=== PATIENT | male | born 1980 | race Caucasian/White ===

== ENCOUNTER 2019-05-06 09:34 | Emergency (ER) | payer BC ==
--- NOTE | 2019-05-06 11:15 | EDM.PDOC ---
ED HPI GENERAL MEDICAL PROBLEM - General Chief Complaint: Cardiovascular Problem Stated Complaint: HIGH BP Time Seen by Provider: 05/06/19 11:16 Source of Information: Reports: Patient History Limitations: Reports: No Limitations - History of Present Illness INITIAL COMMENTS - FREE TEXT/NARRATIVE: Alert very anxious 38 year old male presents due to elevated blood pressure and vague neurologic vertiginous symptoms which seem to be episodic and brought on by eye movement while drinking over the last week. Patient describes ringing in his ear which alternates right and left long with pounding in bilateral ears. Patient took his blood pressure over night resulting in BP 180s/110s. Patient takes his blood pressure routinely which he has noted as just slightly above normal range. Patient is diabetic and has been since 20 years of age. Patient uses OTC Insulin N and R which his gives himself N bolus very am and pm along with R based on sliding scale and caloric intake. Patient checks his blood sugar 10-15 times per day and notes usually between 100 and 120s. Patient does not have a routine PCP and has not for quite some time. Patient became more concerned overnight with vertiginous symptoms with driving long with blood pressure readings. Patient has had episodes when he becomes sweating , rapid respiratory rate, heart palpitation and sweat which make his feel anxious and the anxiety builds to panic over the last week. Patient is more concerned with elevated blood pressure and vertiginous symptoms which prompted ER visit today. Type 1 diabetic since age 20. Self Insulin Treatment: Novolin N 50mg BID Novolin R based on carb counts 1unit per Gram iof Carb 15U per 15Gram Sliding scale: BS 100= No Insulin 200= 20 units 300= 30 units 400= 40 units - Related Data Allergies Allergy/AdvReac Type Severity Reaction Status Date / Time Sulfa (Sulfonamide Allergy Hives Verified 05/06/19 10:09 Antibiotics) Home Meds: Home Meds Insulin NPH Human Isophane [Novolin N] 50 unit SQ BID 05/06/19 [History] Insulin Regular, Human [NovoLIN R] ASDIRECTED 05/06/19 [History] Lisinopril 20 mg PO DAILY 90 Days #90 tablet 05/06/19 [Rx] Meclizine [Antivert] 25 mg PO Q6H PRN 5 Days #40 tab 05/06/19 [Rx] Past Medical History Cardiovascular History: Reports: High Cholesterol, Hypertension Respiratory History: Reports: Sleep Apnea Other Respiratory History: auto pap Musculoskeletal History: Reports: Fracture Other Musculoskeletal History: left tib bone cyst Psychiatric History: Reports: Anxiety Endocrine/Metabolic History: Reports: Diabetes, Type I Other Endocrine/Metabolic History: since age 20. Self Insulin Treatment: Novolin N 50mg BID. Novolin R based on carb counts 1unit per Gram iof Carb 15U per 15Gram. Sliding scale: BS 100= No Insulin. 200= 20 units. 300= 30 units. 400= 40 units Dermatologic History: Reports: Eczema - Past Surgical History HEENT Surgical History: Reports: Adenoidectomy, Myringotomy w Tube(s), Tonsillectomy Social & Family History - Tobacco Use Smoking Status *Q: Former Smoker Used Tobacco, but Quit: Yes Month/Year Tobacco Last Used: 2007 - Caffeine Use Caffeine Use: Reports: Soda Caffeine Use Comment: rarely - Recreational Drug Use Recreational Drug Use: No ED ROS GENERAL - Review of Systems Review Of Systems: ROS reveals no pertinent complaints other than HPI. ED EXAM, GENERAL - Physical Exam Exam: See Below Exam Limited By: No Limitations General Appearance: Alert, WD/WN, Anxious, Mild Distress Eye Exam: Bilateral Eye: EOMI, PERRL Ears: Normal External Exam, Normal Canal, Hearing Grossly Normal, Normal TMs Nose: Normal Inspection, Normal Mucosa, No Blood Throat/Mouth: Normal Inspection, Normal Lips, Normal Teeth, Normal Gums, Normal Oropharynx, Normal Voice, No Airway Compromise Head: Atraumatic, Normocephalic Neck: Normal Inspection, Supple, Non-Tender, Full Range of Motion Respiratory/Chest: No Respiratory Distress, Lungs Clear, Normal Breath Sounds, No Accessory Muscle Use, Chest Non-Tender, Other (increased respiratory rate) Cardiovascular: Normal Peripheral Pulses, Regular Rate, Rhythm GI/Abdominal: Normal Bowel Sounds, Soft, Non-Tender Back Exam: Normal Inspection, Full Range of Motion, NT Extremities: Normal Inspection, Normal Range of Motion, Non-Tender, Normal Capillary Refill, No Pedal Edema Neurological: Alert, Oriented, CN II-XII Intact, Normal Cognition, Normal Gait, Normal Reflexes, No Motor/Sensory Deficits Psychiatric: Normal Affect, Normal Mood, Anxious, Flat Affect Skin Exam: Warm, Dry, Intact, Normal Color, No Rash EKG INTERPRETATION EKG Date: 05/06/19 Time: 12:07 Rhythm: NSR Rate (Beats/Min): 77 [place]: Normal P-Wave: Present QRS: Normal ST-T: Other (non specific ST T wave changes in anterior LEADS) QT: Normal Comparison: NA - No Prior EKG Course - Vital Signs Last Recorded V/S: Last Vital Signs Temp 36.3 C 05/06/19 10:08 Pulse 80 05/06/19 12:31 Resp 18 05/06/19 12:31 BP 142/73 H 05/06/19 12:31 Pulse Ox 95 05/06/19 12:31 - Orders/Labs/Meds Orders: Active Orders 24 hr Category Date Time Status Cardiac Monitoring [RC] .As Directed Care 05/06/19 11:37 Active EKG Documentation Completion [RC] ASDIRECTED Care 05/06/19 11:38 Active EKG 12 Lead [EK] Urgent Ther 05/06/19 11:37 Ordered Labs: Laboratory Tests 05/06/19 05/06/19 05/06/19 Range/Units 11:57 11:57 11:57 WBC 11.4 H (4.5-11.0) K/uL RBC 5.55 (4.30-5.90) M/uL Hgb 16.0 H (12.0-15.0) g/dL Hct 48.5 (40.0-54.0) % MCV 87 (80-98) fL MCH 29 (27-31) pg MCHC 33 (32-36) % Plt Count 256 (150-400) K/uL Neut % (Auto) 81 H (36-66) % Lymph % (Auto) 12 L (24-44) % Rincon % (Auto) 6 (2-6) % Eos % (Auto) 0 L (2-4) % Baso % (Auto) 0 (0-1) % Sodium 139 L (140-148) mmol/L Potassium 4.3 (3.6-5.2) mmol/L Chloride 104 (100-108) mmol/L Carbon Dioxide 24 (21-32) mmol/L Anion Gap 15.3 H (5.0-14.0) mmol/L BUN 13 (7-18) mg/dL Creatinine 1.0 (0.8-1.3) mg/dL Est Cr Clr Drug Dosing 111.01 mL/min Estimated GFR (MDRD) > 60 (>60) Glucose 105 (74-106) mg/dL Hemoglobin A1c 5.9 (4.5-6.2) % Calcium 9.6 (8.5-10.1) mg/dL Magnesium 1.9 (1.8-2.4) mg/dL Total Bilirubin 0.2 (0.2-1.0) mg/dL Direct Bilirubin 0.11 (0.0-0.2) mg/dL Indirect Bilirubin 0.09 AST 17 (15-37) U/L ALT 31 (12-78) U/L Alkaline Phosphatase 106 (46-116) U/L Troponin I < 0.017 (0.000-0.056) ng/mL Total Protein 7.5 (6.4-8.2) g/dL Albumin 3.8 (3.4-5.0) g/dL Globulin 3.7 H (2.3-3.5) g/dL Albumin/Globulin Ratio 1.0 L (1.2-2.2) Urine Color (YELLOW) Urine Appearance (CLEAR) Urine pH (5.0-8.0) Ur Specific Spring (1.008-1.030) Urine Protein (NEGATIVE) mg/dL Urine Glucose (UA) (NEGATIVE) mg/dL Urine Ketones (NEGATIVE) mg/dL Urine Occult Blood (NEGATIVE) Urine Nitrite (NEGATIVE) Urine Bilirubin (NEGATIVE) Urine Urobilinogen (0.2-1.0) EU/dL Ur Leukocyte Esterase (NEGATIVE) Urine RBC (0-5) Urine WBC (0-5) Ur Epithelial Cells Amorphous Sediment Urine Bacteria Urine Mucus 05/06/19 Range/Units 13:29 WBC (4.5-11.0) K/uL RBC (4.30-5.90) M/uL Hgb (12.0-15.0) g/dL Hct (40.0-54.0) % MCV (80-98) fL MCH (27-31) pg MCHC (32-36) % Plt Count (150-400) K/uL Neut % (Auto) (36-66) % Lymph % (Auto) (24-44) % Rincon % (Auto) (2-6) % Eos % (Auto) (2-4) % Baso % (Auto) (0-1) % Sodium (140-148) mmol/L Potassium (3.6-5.2) mmol/L Chloride (100-108) mmol/L Carbon Dioxide (21-32) mmol/L Anion Gap (5.0-14.0) mmol/L BUN (7-18) mg/dL Creatinine (0.8-1.3) mg/dL Est Cr Clr Drug Dosing mL/min Estimated GFR (MDRD) (>60) Glucose (74-106) mg/dL Hemoglobin A1c (4.5-6.2) % Calcium (8.5-10.1) mg/dL Magnesium (1.8-2.4) mg/dL Total Bilirubin (0.2-1.0) mg/dL Direct Bilirubin (0.0-0.2) mg/dL Indirect Bilirubin AST (15-37) U/L ALT (12-78) U/L Alkaline Phosphatase (46-116) U/L Troponin I (0.000-0.056) ng/mL Total Protein (6.4-8.2) g/dL Albumin (3.4-5.0) g/dL Globulin (2.3-3.5) g/dL Albumin/Globulin Ratio (1.2-2.2) Urine Color Yellow (YELLOW) Urine Appearance Clear (CLEAR) Urine pH 5.5 (5.0-8.0) Ur Specific Spring 1.025 (1.008-1.030) Urine Protein Negative (NEGATIVE) mg/dL Urine Glucose (UA) Negative (NEGATIVE) mg/dL Urine Ketones Negative (NEGATIVE) mg/dL Urine Occult Blood Negative (NEGATIVE) Urine Nitrite Negative (NEGATIVE) Urine Bilirubin Negative (NEGATIVE) Urine Urobilinogen 0.2 (0.2-1.0) EU/dL Ur Leukocyte Esterase Negative (NEGATIVE) Urine RBC Not seen (0-5) Urine WBC Not seen (0-5) Ur Epithelial Cells Rare Amorphous Sediment Rare Urine Bacteria Not seen Urine Mucus Rare - Radiology Interpretation Free Text/Narrative:: CT Head: No acute intracranial abnormality noted. CXR PA/LAT: No acute cardiopulmonary findings noted. - Re-Assessments/Exams Free Text/Narrative Re-Assessment/Exam: Assessment completed discuss work-up for Hypertensive Urgency including CT head , CXR, EKG and blood work. Patient is very hesitant regarding IV and blood draws due to large vein access makes his uneasy. Reassurance information from bood will be worth the discomfort as I will obtain numerous beneficial tests including Hgb A1C. 05/06/19 11:40 05/06/19 15:39 Departure - Departure Time of Disposition: 15:50 Disposition: Home, Self-Care 01 Clinical Impression: Vertigo, HTN (hypertension), Insulin dependent diabetes mellitus Prescriptions: Lisinopril 20 mg PO DAILY 90 Days #90 tablet Meclizine [Antivert] 25 mg PO Q6H PRN 5 Days #40 tab PRN Reason: Dizziness Instructions: Diabetes Mellitus and Foot Care, Vertigo, How to Perform the Glo Maneuver, Benign Positional Vertigo, Dizziness, Managing Your Hypertension , Hypertension Referrals: PCP,None [Primary Care Provider] - Forms: ED Department Discharge Additional Instructions: 1. Continue current Insulin regiment Your Hgb A1c is 5.9 which is a good therapeutic range for insulin dependent diabetics. 2. Lisinopril 10mg aily x 7 days then increased to 20mg daily 3. Check blood pressure and pulse at various times during the week and keep track from results. Goal 130/80. If too low or lightheaded symptoms decrease lisinopril to 10 mg daily. 4. Antivert 25 mg every 6 hours for vertigo symptoms untl symptoms resolve may take 5-7days then take as needed. 5. Check your feet 1-2 time weekly to ensure no sore or wound that your can not feel. 6. Call [facility] to follow-up after ER visit or continue current prescribed medications. - My Orders Last 24 Hours: My Active Orders 05/06/19 11:37 Cardiac Monitoring [RC] .As Directed EKG 12 Lead [EK] Urgent 05/06/19 11:38 EKG Documentation Completion [RC] ASDIRECTED - Assessment/Plan Last 24 Hours: My Active Orders 05/06/19 11:37 Cardiac Monitoring [RC] .As Directed EKG 12 Lead [EK] Urgent 05/06/19 11:38 EKG Documentation Completion [RC] ASDIRECTED
[2019-05-06 12:36] LABS: HEMOGLOBIN A1C 5.9 % (4.5-6.2)
--- NOTE | 2019-05-06 13:01 | CRLCR ---
INDICATION: HTN URGENCY TECHNIQUE: Chest 2 views. COMPARISON: None. FINDINGS: Cardiovascular and mediastinum: Heart size and vasculature are normal in caliber and appearance. Mediastinum is within normal limits. Lungs and pleural spaces: Lungs are clear. No sign of infiltrate or mass. No sign of pleural effusion. No pneumothorax. Bones and soft tissues: No significant findings. IMPRESSION: Unremarkable chest. Dictated by: Dayday Munoz MD @ 05/06/2019 12:58:50 (Electronically Signed)
--- NOTE | 2019-05-06 13:18 | CRLCT ---
INDICATION: Headache, hypertension TECHNIQUE: CT head without contrast. COMPARISON: None FINDINGS: CSF spaces: Within normal limits for age. Brain parenchyma: The gomez-white differentiation is normal. No sign of mass, hemorrhage, or midline shift. Skull base and calvarium: The visualized paranasal sinuses and mastoid air cells demonstrate no acute or significant findings. The visualized orbits are grossly unremarkable. No skull fractures. IMPRESSION: Unremarkable noncontrast head CT. Dictated by Dayday Munoz MD @ 05/06/2019 1:16:47 PM Please note that all CT scans at this facility use dose modulation, iterative reconstruction, and/or weight-based dosing when appropriate to reduce radiation dose to as low as reasonably achievable. Dictated by: Dayday Munoz MD @ 05/06/2019 13:16:51 (Electronically Signed)
== END 2019-05-06 16:04 | disposition home or self-care (01) ==
LOC: JP.ED 09:34
DX: I10 Essential (primary) hypertension (principal); R42 Dizziness and giddiness; E10.9 Type 1 diabetes mellitus without complications; E78.00 Pure hypercholesterolemia, unspecified; Z87.891 Personal history of nicotine dependence; Z88.2 Allergy status to sulfonamides
CPT/HCPCS: 36415; 70450; 71046; 80048; 80076; 81001; 82962; 83036; 83735; 84484; 85025; 93005; 99284-25